=== PATIENT | female | born 1955 | race Caucasian/White ===

== ENCOUNTER 2018-07-16 12:16 | Emergency (ER) | payer BC ==
--- NOTE | 2018-07-16 13:06 | EDM.PDOC ---
ED HPI GENERAL MEDICAL PROBLEM - General Chief Complaint: Lower Extremity Injury/Pain Stated Complaint: RT LEG SWELLING Time Seen by Provider: 07/16/18 12:36 Source of Information: Reports: Patient, RN Notes Reviewed - History of Present Illness INITIAL COMMENTS - FREE TEXT/NARRATIVE: 63-year-old female comes in with right lower leg pain and swelling. This started over the past 2 or 3 days. She does not recall any particular injury. States the discomfort actually started and has been more severe just superior and posterior to the right knee yesterday and especially today the right lower leg is becoming more swollen and painful. There is pain at rest, worse with ambulation. No fever or chills. No chest pain or difficulty breathing. No history of blood clots. No recent surgery and no recent travel. Right Leg Pain Score (Numeric/FACES): 7 - Related Data Allergies Allergy/AdvReac Type Severity Reaction Status Date / Time bee venom protein (honey bee) Allergy Other Verified 08/27/17 09:34 kiwi Allergy Other Verified 08/27/17 09:34 Home Meds: Home Meds Omeprazole 1 tab PO DAILY 07/16/18 [History] Potassium Chloride [Klor-Con M20] 1 tab PO DAILY 07/16/18 [History] hydroCHLOROthiazide [Hydrochlorothiazide] 1 cap PO DAILY 07/16/18 [History] Past Medical History Cardiovascular History: Reports: Other (See Below) Other Cardiovascular History: edema - pt. 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: Musculoskeletal History: Reports: Other (See Below) Other Musculoskeletal History: elbow surgery Social & Family History - Tobacco Use Smoking Status *Q: Never Smoker - Caffeine Use Caffeine Use: Reports: Coffee - Recreational Drug Use Recreational Drug Use: No Review of Systems - Review of Systems Review Of Systems: See Below Constitutional: Denies: Chills, Fever Eyes: Reports: No Symptoms Mouth/Throat: Reports: No Symptoms Respiratory: Denies: Shortness of Breath, Wheezing, Pleuritic Chest Pain, Cough Cardiovascular: Denies: Chest Pain GI/Abdominal: Denies: Abdominal Pain, Vomiting Musculoskeletal: Reports: Leg Pain (Right posterior thigh above the knee and lower leg anteriorly and posteriorly.), Joint Pain (Right knee) Skin: Denies: Bruising, Erythema, Change in Color Neurological: Denies: Numbness, Tingling, Weakness ED EXAM, GENERAL - Physical Exam Exam: See Below General Appearance: Alert, Mild Distress Head: Atraumatic Neck: Supple Respiratory/Chest: No Respiratory Distress, Lungs Clear, Normal Breath Sounds Cardiovascular: Regular Rate, Rhythm Extremities: Pedal Edema (Moderate swelling of the right leg distal to the knee compared to the left), Joint Swelling (There is mild swelling of the right knee , knee is nontender medially and laterally, mild tenderness posteriorly.), Leg Pain (There is tenderness of the distal lower thigh just above and medial to the knee, mild diffuse tenderness of the right lower leg posteriorly and anteriorly). No: Redness Neurological: Alert, No Motor/Sensory Deficits Skin Exam: Warm, Dry Course - Vital Signs Last Recorded V/S: Last Vital Signs Temp 97.3 F 07/16/18 12:31 Pulse 73 07/16/18 12:31 Resp 20 07/16/18 12:31 BP 131/86 07/16/18 12:31 Pulse Ox 100 07/16/18 12:31 - Orders/Labs/Meds Labs: Laboratory Tests 07/16/18 07/16/18 Range/Units 14:46 14:46 WBC 7.19 (3.98-10.04) K/mm3 RBC 4.67 (3.98-5.22) M/mm3 Hgb 13.3 (11.2-15.7) gm/L Hct 42.1 (34.1-44.9) % MCV 90.1 (79.4-94.8) fl MCH 28.5 (25.6-32.2) pg MCHC 31.6 L (32.2-35.5) g/dl RDW Std Deviation 42.0 (36.4-46.3) fL Plt Count 300 (182-369) K/mm3 MPV 9.4 (9.4-12.3) fl Neut % (Auto) 56.3 (34.0-71.1) % Lymph % (Auto) 29.1 (19.3-51.7) % [place] % (Auto) 9.5 (4.7-12.5) % Eos % (Auto) 4.3 (0.7-5.8) Baso % (Auto) 0.7 (0.1-1.2) % Neut # (Auto) 4.05 (1.56-6.13) K/mm3 Lymph # (Auto) 2.09 (1.18-3.74) K/mm3 [place] # (Auto) 0.68 H (0.24-0.36) K/mm3 Eos # (Auto) 0.31 (0.04-0.36) K/mm3 Baso # (Auto) 0.05 (0.01-0.08) K/mm3 Sodium 143 (136-145) mEq/L Potassium 3.5 (3.5-5.1) mEq/L Chloride 105 (98-107) mEq/L Carbon Dioxide 29 (21-32) mEq/L Anion Gap 12.5 (5-15) BUN 10 (7-18) mg/dL Creatinine 0.7 (0.55-1.02) mg/dL Est Cr Clr Drug Dosing 72.88 mL/min Estimated GFR (MDRD) > 60 (>60) mL/min BUN/Creatinine Ratio 14.3 (14-18) Glucose 105 (80-115) mg/dL Calcium 8.8 (8.5-10.1) mg/dL Total Bilirubin 0.4 (0.2-1.0) mg/dL AST 22 (15-37) U/L ALT 28 (14-59) U/L Alkaline Phosphatase 92 (46-116) U/L Total Protein 6.9 (6.4-8.2) g/dl Albumin 3.3 L (3.4-5.0) g/dl Globulin 3.6 gm/dL Albumin/Globulin Ratio 0.9 L (1-2) Meds: Medications Discontinued Medications Generic Name Dose Route Start Last Admin Trade Name Freq PRN Reason Stop Dose Admin Rivaroxaban 15 mg 07/16/18 14:50 07/16/18 15:05 Xarelto PO 07/16/18 14:51 15 mg ONETIME ONE Administration - Re-Assessments/Exams Free Text/Narrative Re-Assessment/Exam: 07/16/18 15:08 Ultrasound of the right lower extremity does show deep venous thrombosis within the mid and distal superficial femoral and popliteal vein, see radiology report for details. With her progression of symptoms, moderate swelling of her right lower leg and definitive treatment outweighs risk. Plan to start her on xarelto 15 mg twice a day. First dose given just a short time ago. She continues to have no pulmonary symptoms. Chest x-ray looks good. CBC, CMP nl. O2 sats are running 99-100%. Have given her first 15 mg dose. Prescription called to [facility] for first 3 weeks, 15 mg bid. Discharge instructions as documented. 07/16/18 15:40 Departure - Departure Time of Disposition: 15:10 Disposition: Home, Self-Care 01 Condition: Fair Clinical Impression: DVT (deep venous thrombosis) Qualifiers: DVT location: lower extremity Affected thrombotic vein of extremity: popliteal Chronicity: acute Laterality: right Qualified Code(s): I82.431 - Acute embolism and thrombosis of right popliteal vein - Discharge Information Instructions: Deep Vein Thrombosis Referrals: Ainsley Angulo NEUROLOGY TEACHER [Primary Care Provider] - Forms: ED Department Discharge, ED Return to Work/School Form Additional Instructions: Rest and elevate leg is much as possible, no work recommended for at least the next 2 weeks, surrounded total blood thinner medication 15 mg twice daily for 3 weeks and then 20 mg daily. Follow-up [facility] in [facility] days, call for appointment. Return to ED immediately if having chest discomfort, difficulty breathing, unexplained dizziness or symptoms otherwise worsening in any way.
--- NOTE | 2018-07-16 14:34 | US ---
Right lower extremity deep venous ultrasound: Duplex and color flow imaging was obtained of the right common femoral, proximal greater saphenous, superficial femoral, popliteal, posterior tibial and peroneal veins. Left common femoral vein was also evaluated. Findings: Intraluminal thrombus is identified within the mid and distal superficial femoral vein and popliteal vein. Peroneal vein is poorly seen and difficult to exclude extension of thrombus into this vein. Posterior tibial veins, right common femoral vein and greater saphenous vein are patent. Left common femoral vein is also patent. Impression: 1. Deep venous thrombosis within the right lower extremity as noted above. Diagnostic code #5
[2018-07-16] MEDS ORDERED: Rivaroxaban 10 MG Tab PO ONE (14:50)
--- NOTE | 2018-07-16 15:03 | CR ---
Chest: Portable view of the chest was obtained. Comparison: Prior chest x-ray of 08/19/17. Heart size is normal. Tortuous thoracic aorta is seen. Lungs are clear. Bony structures are unremarkable. Surgical clip is noted within the upper right abdomen from previous cholecystectomy. Impression: 1. Nothing acute is seen. Diagnostic code #2
== END 2018-07-16 15:43 | disposition home or self-care (01) ==
LOC: JD.ED 12:16
DX: I82.431 Acute embolism and thrombosis of right popliteal vein (principal); K21.9 Gastro-esophageal reflux disease without esophagitis; Z79.899 Other long term (current) drug therapy; Z91.030 Bee allergy status
CPT/HCPCS: 36415; 71045; 80053; 85025; 93971; 99284; A9270; 99283

== ENCOUNTER 2019-06-27 13:31 | Emergency (ER) | payer BC ==
[2019-06-27] MEDS ORDERED: Sodium Chloride 0.9% 10 ML Syringe FLUSH PRN (14:03)
[2019-06-27] MEDS ORDERED: Sodium Chloride 0.9% 1,000 ML IV SCH (14:15)
--- NOTE | 2019-06-27 14:17 | EDM.PDOC ---
ED HPI GENERAL MEDICAL PROBLEM - General Chief Complaint: Abdominal Pain Stated Complaint: BLACK STOOL Time Seen by Provider: 06/27/19 13:36 Source of Information: Reports: Patient History Limitations: Reports: No Limitations - History of Present Illness INITIAL COMMENTS - FREE TEXT/NARRATIVE: The patient presents with dark stools. This started last night. She had about 8 stools that were black and tarry. She said on Saturday she had some nausea and vomiting. She then had some watery diarrhea and then last night she started having the black and tarry stools. She is on xarelto for a DVT in her right leg that was diagnosed in July. She has no pain but her stomach does not feel right. She has never had this before. She has no fever, chills, cough , chest pain, shortness of breath or dysuria. Onset: Gradual Duration: Day(s): Location: Reports: Abdomen Quality: Reports: Other (does not feel right) Severity: Mild Improves with: Reports: None Worsens with: Reports: None Associated Symptoms: Reports: No Other Symptoms - Related Data Allergies Allergy/AdvReac Type Severity Reaction Status Date / Time bee venom protein (honey bee) Allergy Other Verified 08/27/17 09:34 kiwi Allergy Other Verified 08/27/17 09:34 Home Meds: Home Meds Omeprazole 20 mg PO DAILY 07/16/18 [History] Potassium Chloride [Klor-Con M20] 10 meq PO DAILY 07/16/18 [History] hydroCHLOROthiazide [Hydrochlorothiazide] 25 mg PO DAILY 07/16/18 [History] Calcium Carbonate/Vitamin D3 [Calcium 600 + Vit D 400 Softgl] 2 tab PO DAILY [History] Cholecalciferol (Vitamin D3) [Vitamin D3] 2,000 unit PO DAILY 06/27/19 [History] Cyanocobalamin (Vitamin B-12) [Vitamin B-12] 1,000 mcg PO DAILY 06/27/19 [ History] Rivaroxaban [Xarelto] 10 mg PO DAILY 06/27/19 [History] Past Medical History Cardiovascular History: Reports: Blood Clots/VTE/DVT, Other (See Below) Other Cardiovascular History: edema - pt. 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: Musculoskeletal History: Reports: Other (See Below) Other Musculoskeletal History: elbow surgery Social & Family History - Tobacco Use Smoking Status *Q: Never Smoker - Caffeine Use Caffeine Use: Reports: Coffee, Soda - Recreational Drug Use Recreational Drug Use: No ED ROS GENERAL - Review of Systems Review Of Systems: See Below Constitutional: Reports: No Symptoms HEENT: Reports: No Symptoms Respiratory: Reports: No Symptoms Cardiovascular: Reports: No Symptoms Endocrine: Reports: No Symptoms GI/Abdominal: Reports: Abdominal Pain (not feeling right), Other (dark stools) : Reports: No Symptoms Musculoskeletal: Reports: No Symptoms Skin: Reports: No Symptoms ED EXAM, GI/ABD - Physical Exam Exam: See Below Exam Limited By: No Limitations General Appearance: Alert, No Apparent Distress Ears: Normal External Exam Nose: Normal Inspection Head: Atraumatic, Normocephalic Neck: Normal Inspection Respiratory/Chest: No Respiratory Distress, Lungs Clear, Normal Breath Sounds Cardiovascular: Regular Rate, Rhythm, No Edema, No Murmur GI/Abdominal Exam: Soft, No Organomegaly, No Mass, Other (Mild tenderness to the left abdomen) Rectal (Female) Exam: Black Stool, Heme - Stool Extremities: Normal Inspection Neurological: Alert, Oriented, No Motor/Sensory Deficits Course - Vital Signs Last Recorded V/S: Last Vital Signs Temp 99.0 F 06/27/19 13:48 Pulse 72 06/27/19 13:48 Resp 20 06/27/19 13:48 BP 112/80 06/27/19 13:48 Pulse Ox 91 L 06/27/19 13:48 - Orders/Labs/Meds Orders: Active Orders 24 hr Category Date Time Status Peripheral IV Care [RC] . DIRECTED Care 06/27/19 14:04 Active Abdomen Pelvis w Cont [CT] Stat Exams 06/27/19 14:03 Stop Req Sodium Chloride 0.9% [Normal Saline] 1,000 ml Med 06/27/19 14:15 Active IV ASDIRECTED Sodium Chloride 0.9% [Saline Flush] Med 06/27/19 14:03 Active 10 ml FLUSH ASDIRECTED PRN Peripheral IV Insertion Adult [OM.PC] Stat Oth 06/27/19 14:03 Ordered Medication Orders Sodium Chloride (Normal Saline) 1,000 mls @ 125 mls/hr IV ASDIRECTED LIZ Last Admin: 06/27/19 14:20 Dose: 125 mls/hr Sodium Chloride (Saline Flush) 10 ml FLUSH ASDIRECTED PRN PRN Reason: Keep Vein Open Last Admin: 06/27/19 13:55 Dose: 10 ml Labs: Laboratory Tests 06/27/19 06/27/19 Range/Units 13:55 13:55 WBC 8.54 (3.98-10.04) K/mm3 RBC 5.14 (3.98-5.22) M/mm3 Hgb 15.2 (11.2-15.7) gm/dl Hct 47.2 H (34.1-44.9) % MCV 91.8 (79.4-94.8) fl MCH 29.6 (25.6-32.2) pg MCHC 32.2 (32.2-35.5) g/dl RDW Std Deviation 42.6 (36.4-46.3) fL Plt Count 296 (182-369) K/mm3 MPV 9.6 (9.4-12.3) fl Neut % (Auto) 67.5 (34.0-71.1) % Lymph % (Auto) 21.7 (19.3-51.7) % [place] % (Auto) 9.8 (4.7-12.5) % Eos % (Auto) 0.7 (0.7-5.8) Baso % (Auto) 0.2 (0.1-1.2) % Neut # (Auto) 5.76 (1.56-6.13) K/mm3 Lymph # (Auto) 1.85 (1.18-3.74) K/mm3 [place] # (Auto) 0.84 H (0.24-0.36) K/mm3 Eos # (Auto) 0.06 (0.04-0.36) K/mm3 Baso # (Auto) 0.02 (0.01-0.08) K/mm3 Sodium 138 (136-145) mEq/L Potassium 2.7 L (3.5-5.1) mEq/L Chloride 100 (98-107) mEq/L Carbon Dioxide 28 (21-32) mEq/L Anion Gap 12.7 (5-15) BUN 19 H (7-18) mg/dL Creatinine 0.8 (0.55-1.02) mg/dL Est Cr Clr Drug Dosing 62.96 mL/min Estimated GFR (MDRD) > 60 (>60) mL/min BUN/Creatinine Ratio 23.8 H (14-18) Glucose 113 (80-115) mg/dL Calcium 8.8 (8.5-10.1) mg/dL Total Bilirubin 0.7 (0.2-1.0) mg/dL AST 21 (15-37) U/L ALT 31 (14-59) U/L Alkaline Phosphatase 66 (46-116) U/L Total Protein 7.3 (6.4-8.2) g/dl Albumin 3.8 (3.4-5.0) g/dl Globulin 3.5 gm/dL Albumin/Globulin Ratio 1.1 (1-2) Lipase 154 (73-393) U/L Meds: Medications Generic Name Dose Route Start Last Admin Trade Name Freq PRN Reason Stop Dose Admin Sodium Chloride 1,000 mls @ 125 mls/hr 06/27/19 14:15 06/27/19 14:20 Normal Saline IV 125 mls/hr ASDIRECTED LIZ Administration Sodium Chloride 10 ml 06/27/19 14:03 06/27/19 13:55 Saline Flush FLUSH 10 ml ASDIRECTED PRN Administration Keep Vein Open - Re-Assessments/Exams Free Text/Narrative Re-Assessment/Exam: 06/27/19 14:20 I ordered an IV saline lock, labs and CT of her abdomen and pelvis. 06/27/19 14:44 Her stool was dark but it was guiac negative. Her CBC looks good. Her potassium is low at 2.7. She is on potassium. I will have her double up on that and have that rechecked. Her lipase is normal. I have canceled the CT. I will discharge her home. Departure - Departure Time of Disposition: 14:50 Disposition: Home, Self-Care 01 Condition: Good Clinical Impression: Hypokalemia, Gastroenteritis - Discharge Information *PRESCRIPTION DRUG MONITORING PROGRAM REVIEWED*: Not Applicable *COPY OF PRESCRIPTION DRUG MONITORING REPORT IN PATIENT ELBERT: Not Applicable Referrals: Bronwyn Roth PA-C [Primary Care Provider] - 1 Week Forms: ED Department Discharge Additional Instructions: Drink plenty of fluids. Take a double dose of your potassium to 40meq. You may have some dark stool for a few days. That can happen with the pepto bismal. Please return if you are worse. Sepsis Event Note - Evaluation Sepsis Screening Result: No Definite Risk - Focused Exam Vital Signs: Vital Signs Temp Pulse Resp BP Pulse Ox 06/27/19 13:48 99.0 F 72 20 112/80 91 L Date Exam was Performed: 06/27/19 Time Exam was Performed: 14:44 - My Orders Last 24 Hours: My Active Orders 06/27/19 14:03 Abdomen Pelvis w Cont [CT] Stat Sodium Chloride 0.9% [Saline Flush] 10 ml FLUSH ASDIRECTED PRN Peripheral IV Insertion Adult [OM.PC] Stat 06/27/19 14:04 Peripheral IV Care [RC] . DIRECTED 06/27/19 14:15 Sodium Chloride 0.9% [Normal Saline] 1,000 ml IV ASDIRECTED - Assessment/Plan Last 24 Hours: My Active Orders 06/27/19 14:03 Abdomen Pelvis w Cont [CT] Stat Sodium Chloride 0.9% [Saline Flush] 10 ml FLUSH ASDIRECTED PRN Peripheral IV Insertion Adult [OM.PC] Stat 06/27/19 14:04 Peripheral IV Care [RC] . DIRECTED 06/27/19 14:15 Sodium Chloride 0.9% [Normal Saline] 1,000 ml IV ASDIRECTED
== END 2019-06-27 15:10 | disposition home or self-care (01) ==
LOC: JD.ED 13:31
DX: K52.9 Noninfective gastroenteritis and colitis, unspecified (principal); E87.6 Hypokalemia; K21.9 Gastro-esophageal reflux disease without esophagitis; Z86.718 Personal history of other venous thrombosis and embolism; Z91.018 Allergy to other foods; Z91.030 Bee allergy status; Z79.899 Other long term (current) drug therapy; Z79.01 Long term (current) use of anticoagulants
CPT/HCPCS: 36415; 80053; 83690; 85025; 96360; 99284; J7030; 99283

== ENCOUNTER 2020-06-07 14:11 | Emergency (ER) | payer BC ==
--- NOTE | 2020-06-07 14:53 | EDM.PDOC ---
ED HPI GENERAL MEDICAL PROBLEM - General Chief Complaint: Head Injury Stated Complaint: HEAD INJ 5 DAYS AGO NOW NAUSEA, NUMBNESS Time Seen by Provider: 06/07/20 14:22 Source of Information: Reports: Patient History Limitations: Reports: No Limitations - History of Present Illness INITIAL COMMENTS - FREE TEXT/NARRATIVE: 65-year-old female presents to the emergency department with complaints of head injury after a fall down about 4 steps. Patient states that on she was in her fifth wheel camper making the bed and fell backwards down about 4 stairs then hitting her head on the side of a counter. The right at all side of her head just above her temporal region. Denies losing consciousness. She states she did have a headache the remainder of the evening. The following day the patient states she felt okay however did develop a headache later in the day. On the third day the patient states that she developed nausea while at work for most of the day and then a headache later on in the evening. And now the last 2 days patient has had persistent nausea without vomiting and headache pain. Patient states she was washing her dishes this morning and her tire right hand became numb she states this lasted about 15 minutes and then resolved and she has not had any issues since. Patient does take a baby aspirin daily. Head Pain Score (Numeric/FACES): 2 - Related Data Allergies Allergy/AdvReac Type Severity Reaction Status Date / Time bee venom protein (honey bee) Allergy Other Verified 06/07/20 14:22 kiwi Allergy Other Verified 06/07/20 14:22 Home Meds: Home Meds Omeprazole 20 mg PO DAILY 07/16/18 [History] Potassium Chloride [Klor-Con M20] 10 meq PO DAILY 07/16/18 [History] hydroCHLOROthiazide [Hydrochlorothiazide] 25 mg PO DAILY 07/16/18 [History] Calcium Carbonate/Vitamin D3 [Calcium 600 + Vit D 400 Softgl] 2 tab PO DAILY 06/27/19 [History] Cholecalciferol (Vitamin D3) [Vitamin D3] 2,000 unit PO DAILY 06/27/19 [History] Cyanocobalamin (Vitamin B-12) [Vitamin B-12] 1,000 mcg PO DAILY 06/27/19 [History] Aspirin [Aspirin EC] 81 mg PO DAILY 06/07/20 [History] Ondansetron [Zofran ODT] 4 mg PO Q6H PRN #20 tab.dis 06/07/20 [Rx] Past Medical History HEENT History: Reports: Impaired Vision Cardiovascular History: Reports: Blood Clots/VTE/DVT Other Cardiovascular History: edema - pt. 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: Musculoskeletal History: Reports: Other (See Below) Other Musculoskeletal History: elbow surgery Social & Family History - Tobacco Use Tobacco Use Status *Q: Never Tobacco User - Caffeine Use Caffeine Use: Reports: Coffee - Recreational Drug Use Recreational Drug Use: No ED ROS GENERAL - Review of Systems Review Of Systems: See Below Constitutional: Reports: No Symptoms HEENT: Reports: No Symptoms, Other (Patient she states her right ear feels like fluid is running out of it.) Respiratory: Reports: No Symptoms Cardiovascular: Reports: No Symptoms Endocrine: Reports: No Symptoms GI/Abdominal: Reports: Nausea. Denies: Abdominal Pain, Vomiting : Reports: No Symptoms Musculoskeletal: Reports: No Symptoms Skin: Reports: No Symptoms Neurological: Reports: Headache Psychiatric: Reports: No Symptoms Hematologic/Lymphatic: Reports: No Symptoms Immunologic: Reports: No Symptoms ED EXAM, HEAD INJURY - Physical Exam Exam: See Below Exam Limited By: No Limitations General Appearance: Alert, WD/WN, No Apparent Distress Head: Atraumatic, Normocephalic, Scalp Tenderness (right parietal region above the right ear). No: Scalp Lacerations, Scalp Swelling, Scalp Hematoma, Prescott's Sign Nexus Criteria: No: Altered Level of Consciousness, Focal Neurological Deficit Eyes: Bilateral Eye: EOMI, PERRL Ears: Normal External Exam, Normal Canal, Hearing Grossly Normal, Normal TMs, TM Obscured by Cerumen Nose: Normal Inspection Throat/Mouth: Normal Inspection, Normal Voice, No Airway Compromise Neck: Non-Tender, Full Range of Motion, Normal Alignment, Normal Inspection Respiratory: No Respiratory Distress, Lungs Clear, Normal Breath Sounds, No Accessory Muscle Use, Chest Non-Tender Cardiovascular: Normal Peripheral Pulses, Regular Rate, Rhythm, No Edema, No M urmur GI/Abdominal Exam: Normal Bowel Sounds, Soft, Non-Tender, No Distention (Female) Exam: Deferred Rectal (Female) Exam: Deferred Back Exam: Normal Inspection, Full Range of Motion Extremities: Normal Inspection, Normal Range of Motion, Non-Tender, No Pedal Edema Neurologic: No Motor/Sensory Deficits, Alert, Normal Mood/Affect, Oriented x 3 Skin: Normal Color, Warm/Dry - Tasha Coma Score Best Eye Response (Tasha): (4) Open Spontaneously Best Verbal Response (Tasha): (5) Oriented Best Motor Response ([place]): (6) Obeys Commands Course - Vital Signs Text/Narrative:: 65-year-old female with a history of a fall down 4 flights of stairs and then hitting her head on the side of a counter without loss of consciousness. This incident happened 5 days ago. Patient has had increased nausea and headache pain over the course of the last several days. Patient does take a baby aspirin daily. I have ordered a CT scan of the head to rule out a bleed. Last Recorded V/S: Last Vital Signs Temp 97.6 F 06/07/20 14:23 Pulse 69 06/07/20 14:23 Resp 16 06/07/20 14:23 BP 128/83 06/07/20 14:23 Pulse Ox 93 L 06/07/20 14:23 - Radiology Interpretation Free Text/Narrative:: CT of the head radiology impression: 1. Nothing acute is appreciated on noncontrast head CT study. Departure - Departure Time of Disposition: 15:21 Disposition: Home, Self-Care 01 Clinical Impression: Concussion with no loss of consciousness - Discharge Information Prescriptions: Ondansetron [Zofran ODT] 4 mg PO Q6H PRN #20 tab.dis PRN Reason: Nausea/Vomiting Instructions: Head Injury, Adult, [id number], Post-Concussion Syndrome, [id number] Referrals: Bronwyn Roth PA-C [Primary Care Provider] - Forms: ED Department Discharge, ED Return to Work/School Form Additional Instructions: You were seen in the emergency department with complaints of head injury that occurred 5 days ago. We did a CT scan of your head which did not show any trauma or bleeding. You very likely have a concussion and the treatment for this is rest. Decrease use of electronics, television cell phone etc. for the next week. You can take Tylenol 650 mg every 6 hours as needed for headache pain. I have also given you a prescription for Zofran which is a nausea medication. Place this tablet under your tongue and allow it to dissolve. After about 30 minutes you should notice relief of nausea and/or vomiting. You can return to work on Saturday. Should you continue to have issues with headache and nausea follow-up with your primary care physician or return to the emergency department should your condition worsen. Sepsis Event Note (ED) - Evaluation Sepsis Screening Result: No Definite Risk - Focused Exam Vital Signs: Vital Signs Temp Pulse Resp BP Pulse Ox 06/07/20 14:23 97.6 F 69 16 128/83 93 L
--- NOTE | 2020-06-07 15:07 | CT ---
Head CT Technique: Multiple axial sections through the brain were obtained. Intravenous contrast was not utilized. Comparison: Prior head CT study of 01/14/12. Findings: Ventricles along with basal cisterns and sulci over the convexities are mildly prominent. No abnormal parenchymal densities are seen. No evidence of intracranial hemorrhage. No midline shift or mass-effect is seen. Bone window settings were reviewed which show chronic mucosal thickening within the right side of the sphenoid sinus. Other visualized paranasal sinuses are clear. Visualized mastoid sinuses are clear. Impression: 1. Nothing acute is appreciated on noncontrast head CT study. 2. Other incidental findings as noted above. Diagnostic code #2
== END 2020-06-07 15:34 | disposition home or self-care (01) ==
LOC: JD.ED 14:11
DX: S06.0X0A Concussion without loss of consciousness, initial encounter (principal); K21.9 Gastro-esophageal reflux disease without esophagitis; Z79.82 Long term (current) use of aspirin; Z79.899 Other long term (current) drug therapy; Z91.030 Bee allergy status; Z91.018 Allergy to other foods; W10.8XXA Fall (on) (from) other stairs and steps, initial encounter
CPT/HCPCS: 70450; 70450-26; 99283-25

== ENCOUNTER 2022-10-23 08:41 | Day surgery (SDC) | payer BC ==
[~2022-10-23 08:41] MED LIST: Lactated Ringers 1,000 ML IV SCH; Lidocaine 1% 2 ML ONE; Lidocaine 1%/Sod Bicarbonate in NS 8.4% 1 ML Syringe IDERM PRN; Midazolam 1 MG/ML 2 ML SDV ONE; Propofol 200 MG/20 ML SDV ONE; Sodium Chloride 0.9% 10 ML Syringe FLUSH PRN; Sodium Chloride 0.9% 10 ML Syringe FLUSH SCH; fentaNYL 100 MCG/2 ML SDV ONE
== END 2022-10-23 09:45 | disposition home or self-care (01) ==
LOC: JD.SDS 08:41
PROVIDERS: ATTEND Surgery
DX: Z12.11 Encounter for screening for malignant neoplasm of colon (principal); D12.7 Benign neoplasm of rectosigmoid junction; K57.30 Diverticulosis of large intestine without perforation or abscess without bleeding; K21.9 Gastro-esophageal reflux disease without esophagitis; E78.5 Hyperlipidemia, unspecified; I10 Essential (primary) hypertension; Z91.018 Allergy to other foods; Z79.82 Long term (current) use of aspirin; Z79.899 Other long term (current) drug therapy; Z80.0 Family history of malignant neoplasm of digestive organs; Z87.891 Personal history of nicotine dependence
CPT/HCPCS: 45385; J2250; J2704; J3010; J7120; 00811; J3490